=== PATIENT | female | born 1985 | race Caucasian/White ===

== ENCOUNTER 2020-11-26 12:07 | Emergency (ER) | payer OTHER ==
[~2020-11-26] VITALS: Ht 167.6 cm; Wt 61.2 kg
[~2020-11-26 12:07] MED LIST: ACET500 PO; ALBIPROI INH; ALBU90I; ALBU90OI; ALBU90OI INH; ALBU90OI61 INH; AMOX500 PO; AZIT250 PO; CEPH500 PO; COMBIVENT RESPIM4 GM IH; CRUTCH3 USE; CYCL10 PO; DOC250 PO; HYDACE5 PO; HYDACE5325 PO; HYDHOMSY PO; IBUP600 PO; NAPR500 PO; OXYACE5T PO; PENVK500 PO; PROACE100 PO; PRODEXEL PO; PROM25S PR; Prednisone20 MG PO; RXHYDACE PO; RXPROACE PO; SULTRIDS PO; Zithromax250 MG PO
== END 2020-11-26 15:30 | disposition home or self-care (01) ==
LOC: ER 12:07
DX: S60.454A Superficial foreign body of right ring finger, initial encounter (principal); J45.909 Unspecified asthma, uncomplicated; F17.200 Nicotine dependence, unspecified, uncomplicated; Z88.2 Allergy status to sulfonamides; Z88.8 Allergy status to other drugs, medicaments and biological substances; Z79.899 Other long term (current) drug therapy; W45.8XXA Other foreign body or object entering through skin, initial encounter
CPT/HCPCS: 99283

== ENCOUNTER 2021-08-24 09:33 | Emergency (ER) | payer OTHER ==
[~2021-08-24] VITALS: Ht 172.7 cm; Wt 54.4 kg
== END 2021-08-24 10:58 | disposition home or self-care (01) ==
LOC: ER 09:33
DX: J45.901 Unspecified asthma with (acute) exacerbation (principal); F17.210 Nicotine dependence, cigarettes, uncomplicated; Z88.2 Allergy status to sulfonamides; Z88.8 Allergy status to other drugs, medicaments and biological substances
CPT/HCPCS: 94640; 94664; J1100

== ENCOUNTER 2022-12-13 16:19 | Emergency (ER) | payer OTHER ==
[~2022-12-13] VITALS: Ht 170.2 cm; Wt 59.0 kg
[2022-12-13 16:33] VITALS: BP 132/85
== END 2022-12-13 19:30 | disposition home or self-care (01) ==
LOC: ER 16:19
DX: S81.812A Laceration without foreign body, left lower leg, initial encounter (principal); W01.10XA Fall on same level from slipping, tripping and stumbling with subsequent striking against unspecified object, initial encounter; Z88.2 Allergy status to sulfonamides; J45.909 Unspecified asthma, uncomplicated; F17.210 Nicotine dependence, cigarettes, uncomplicated
CPT/HCPCS: 12002; 96372-59; 99282-25; A9270; J0690

== ENCOUNTER 2024-10-08 13:41 | Emergency (ER) | payer OTHER ==
[~2024-10-08] VITALS: Ht 167.6 cm; Wt 62.6 kg
[2024-10-08 14:09] VITALS: BP 156/99
[2024-10-08] MEDS ORDERED: IBUP600 PO (15:52)
[2024-10-08] MEDS ORDERED: FAMO20 PO (15:52)
[2024-10-08] MEDS ORDERED: Robaxin750 MG PO (15:52)
== END 2024-10-08 15:58 | disposition home or self-care (01) ==
LOC: ER 13:41
DX: S40.011A Contusion of right shoulder, initial encounter (principal); S50.01XA Contusion of right elbow, initial encounter; S70.01XA Contusion of right hip, initial encounter; J45.909 Unspecified asthma, uncomplicated; F17.200 Nicotine dependence, unspecified, uncomplicated; V03.90XA Pedestrian on foot injured in collision with car, pick-up truck or van, unspecified whether traffic or nontraffic accident, initial encounter; Z88.2 Allergy status to sulfonamides
CPT/HCPCS: 73000; 73080; 73502; 99283-25; A9270